=== PATIENT | male | born 1960 | race Caucasian/White ===

== ENCOUNTER 2025-09-24 15:38 | Emergency (ER) | payer MEDICARE, OTHER, SELFPAY ==
[2025-09-24 15:40] VITALS: BP 174/111
[2025-09-24 16:09] LABS: Hematocrit 46.5 % (39.0-52.0); Hemoglobin 15.6 g/dL (13.0-18.0); Mean Corp Hgb Conc. 33.5 g/dL (33.0-37.0); Mean Corpuscular Volume 87.1 fL (80.0-94.0); Nucleated Red Blood Cells % 0 % (-); Platelet Count 223 10^3/uL (130-400); Red Cell Dist. Width 13.2 % (11.5-14.5)
[2025-09-24 16:30] LABS: ALT (SGPT) 24 U/L (0-50); AST (SGOT) 21 U/L (17-59); Albumin 4.8 g/dl (3.5-5.0); Alkaline Phosphatase 52 U/L (38-126); Blood Urea Nitrogen 13 mg/dl (9-20); Calcium 10.0 mg/dl (8.4-10.2); Carbon Dioxide 30 mmol/L (22-30); Chloride 101 mmol/L (98-107); Glucose 85 mg/dl (70-99); Potassium 4.1 mmol/L (3.5-5.1); Sodium 138 mmol/L (135-145); Total Protein 7.9 g/dl (6.3-8.2); eGFR > 60.00
[2025-09-24 19:25] VITALS: BP 144/95
[2025-09-24] MEDS: NORVASC 5 MG PO (19:27)
--- NOTE | 2025-09-24 20:26 | ED.GENMED ---
History of Present Illness
General
Chief Complaint: Blood Pressure Problem
Time Seen by Provider: 09/24/25 18:05
Nursing documentation reviewed up to this point in time: agreed with
History of Present Illness
History of Present Illness:
64-year-old male presents to the ER for evaluation of elevated blood pressure. Patient states he has been under an extreme amount of stress in the past 2 weeks related to his job. He has not been sleeping well. He has not had his Norvasc to take
in the last 5 days. He states that last week as well as today he experienced a period of loss of peripheral vision in both of his eyes. 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 It
lasted several minutes. He felt as though he was very short of breath and overwhelmed during the episode. No chest pain. No paresthesias. No weakness in his arms or legs. He states that this episode was similar to the episode last week. He
denies headache. He denies cough or cold symptoms. He has no prior personal history of ACS or CVA.
Past History
Past History
ED Past Medical History: HTN
Social History
Tobacco: Non-smoker
Personal:
Living: with family
Review of Systems
Review of Systems
Allergies reviewed?: Yes
Phy Exam
Physical Exam
Physical Exam:
Patient is awake, alert, appears in no acute distress, head is NCAT, PERRL, EOMI mucous membranes moist, conjunctiva pink, heart regular rate and rhythm without murmurs or ectopy, lungs are clear to auscultation without wheezes rales or rhonchi, no
JVD, abdomen is soft and nontender on palpation, extremities without edema, GCS is 15, no dysdiadochokinesia, no ataxia, no pronator drift
NIH Stroke Score
Level of Consciousness: 0 - Alert
LOC questions: 0-Answers both correctly
LOC Commands: 0-Performs both correctly
Best Gaze: 0-Normal
Visual Staples: 0=Normal, no visual loss
Facial palsy: 0=Normal, symmetrical
Motor - Right Arm: 0=No drift 10 seconds
Motor - Left Arm: 0=No drift 10 seconds
Motor - Right Le-No drift 5 seconds
Motor - Left Le-No drift 5 seconds
Limb Ataxia: 0-Absent
Sensation: 0-Normal
Best Language: 0-No aphasia
Dysarthria: 0-Normal
Extinction and Inattention: 0-No abnormality
Total Score:: 0
Course
Orders/Labs/Results
Orders:
Orders
09/24/25 15:42
Electrocardiogram (*1) Urgent
Reason for Study: Hypertension, Benign
EKG- Treatment ONCE
09/24/25 15:52
Complete Blood Count/With Diff Urgent
Comprehensive Metabolic Panel Urgent
09/24/25 18:09
CT Head W/o Iv Contrast Urgent
Comment:
Reason For Exam: visual disturbance
09/24/25 19:10
Amlodipine [Norvasc] 5 mg PO ONCE ONE
Abnormal Lab Results
09/24/25
15:52
Absolute Monos (auto) 0.7 H 10^3/uL
(0.1-0.6)
09/24/25 15:52
09/24/25 15:52
Labs are very reassuring-normal CBC, normal electrolytes and kidney function
Vital Signs
Initial and Last Documented VS:
Initial Vital Signs
Temp Pulse Resp BP Pulse Ox
98.2 F 96 16 174/111 98
09/24/25 15:40 09/24/25 15:40 09/24/25 15:40 09/24/25 15:40 09/24/25 15:40
Last Documented Vital Signs
Temp Pulse Resp BP Pulse Ox
98.2 F 96 16 144/95 97
09/24/25 15:40 09/24/25 15:40 09/24/25 15:40 09/24/25 19:27 09/24/25 20:27
MDM/Problems Addressed
Differential Diagnosis Includes:
Differential diagnosis to consider but not limited to acute stress reaction, hypertensive emergency, stroke, TIA along with other etiologies considered
Chronic conditions affecting care:
Hypertension
*Radiology
Radiology exam reviewed: radiology read reviewed
*Pulse Oximetry
SaO2: 97
Oxygen Mode of Delivery: Room air
Patient hypoxic: no
*EKG
Interpreted by ED Provider?: Yes (I independently viewed and interpreted twelve-lead EKG showing normal sinus rhythm, rate 84, normal axis, normal intervals, no ST elevation, this is a normal tracing, no prior for comparison)
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
Rate: normal (I independently viewed and interpreted rhythm strip showing normal sinus rhythm, no ectopy)
*Critical Care Note
Total Time (30-74mins, 75-104mins- exclusive of procedures): Not Applicable
Update Note
Update Note:
Patient resting comfortably throughout time in the emergency department. Blood pressure improved with monitoring. Patient was given his routine Norvasc. He states that a prescription has been called into his pharmacy however he has been unable to
get there due to work constraints. I discussed with patient and present bedside very reassuring workup here in the ER, including normal CT of the head. I discussed with him symptoms are likely reflective of panic attacks due to excessive
stress and poor sleep habit at the current time. We discussed improved sleep hygiene. We discussed need for close outpatient follow-up with primary care physician for reevaluation and further care. Patient does take aspirin daily, I have
recommended that he continue taking this as well I believe his symptoms are related to stress, he is at risk for stroke given increased stress, HTN and age >50. He expressed understanding of strict return precautions. He and had no questions
prior to leaving the department.
ED Attending Note
-
Portions of this chart may have been created with voice recognition software.� Occasional wrong word or��sound alike� substitutions may have occurred due to the inherent limitations of voice recognition software.
Discharge Plan
Departure
Patient Disposition: Home (Routine Discharge)
Date of Disposition: 09/24/25
Time of Disposition: 20:27
Patient with high blood pressure during this ER visit?: Yes
Discharge Problem:
Hypertension
Instructions: BLOOD PRESSURE
Prescriptions:
No Action
Lisinopril
10 mg PO DAILY
multivitamin Tablet
1 tab PO DAILY
aspirin 325 mg Tablet
650 mg PO Q4H PRN (Reason: discomfort)
ascorbic acid (vitamin C) [Vitamin C] 500 mg Tablet
1,000 mg PO DAILY
Fish Oil
1 cap PO DAILY
Glucosamine Chondroitin
1 tab PO DAILY
Zinc With Elderberry
1 dose PO DAILY
Xarelto DVT-PE Treat 30d Start 15 mg (42)- 20 mg (9) tablets,dose pack
See Rx Instructions .ROUTE .COMPLEX Qty: 51 0RF
Rx Instructions:
Please take 50 mg twice daily with food for 21 days followed by 20 mg once daily with food.
Referrals:
Ganesh Lynn MD [Family Provider, Family Practice]
Activity Restrictions/Additional Instructions:
Continue your current medications-please scrap picker your prescription for amlodipine tomorrow as discussed. Please try to improve your sleep hygiene. Please follow-up with your primary care physician as discussed for further treatment
Interventions
Interventions:
*Risk Screen - Suicide Last Done: 09/24/25 15:42
*General Assessment Last Done: 09/24/25 19:28
*Neglect/Abuse Screening Last Done: 09/24/25 15:42
*ED- Fall Risk Assessment Last Done: 09/24/25 17:53
*ED COVID-19 Vaccine History Last Done: 09/24/25 17:53
*ED Influenza Vaccine History Last Done: 09/24/25 17:53
*Nursing Disposition Last Done: 09/24/25 20:34
ED- Cardiac Assessment Last Done: 09/24/25 17:53
ED- Neurological Assessment Last Done: 09/24/25 17:53
ED- Pulmonary Assessment Last Done: 09/24/25 17:53
Discharge Date and Time
Discharge Date/Time: 09/24/25 20:34
Print Language: TAIWANESE
== END 2025-09-24 20:34 | disposition home or self-care (01) ==
LOC: EMR 15:38
PROVIDERS: Student in an Organized Health Care Education/Training Program; EMERGENCY PHYSICIAN Emergency Medicine; FAMILY PHYSICIAN Family Medicine
DX: I10 Essential (primary) hypertension (principal); Z79.82 Long term (current) use of aspirin; T46.1X6A Underdosing of calcium-channel blockers, initial encounter; Z91.128 Patient's intentional underdosing of medication regimen for other reason; Z56.6 Other physical and mental strain related to work
CPT/HCPCS: 99284; 70450; 80053; 85025; 93005